=== PATIENT | male | born 1995 | race Caucasian/White ===

== ENCOUNTER 2022-04-15 15:54 | Emergency (ER) | payer OTHER, SELFPAY ==
[2022-04-15 16:07] VITALS: BP 134/76; PULSE 91; RESP 14; TEMP 36.4; O2SAT 99; BMI 27.8
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
[2022-04-15 17:17] LABS: Basophils # 0.1 10^3/uL (0.0-0.1); Basophils % 0.4 %; Eosinophils # 0.1 10^3/uL (0.0-0.8); Hematocrit 44.3 % (42.0-52.0); Hemoglobin 15.3 g/dL (11.7-16.6); Lymphocytes # 1.8 10^3/uL (0.8-4.8); Lymphocytes % 15.5 %; Mean Corpuscular HGB Conc 34.5 g/dL (30.0-36.0); Mean Corpuscular Hemoglobin 28.8 pg (28.0-34.0); Mean Corpuscular Volume 83.4 fl (80-94); Mean Platelet Volume 9.1 fL (7.4-10.4); Monocytes # 0.4 10^3/uL (0.2-0.9); Monocytes % 3.6 %; Neutrophils # 9.34 10^3/uL (1.8-7.7); Neutrophils % 78.9 %; Nucleated Red Blood Cells % 0 %; Platelet Count 242 10^3/cmm (130-400); Red Blood Count 5.31 10^6/uL (4.1-5.3); Red Cell Distribution Width 11.5 % (12.1-15.1); White Blood Count 11.8 10^3/uL (4.0-10.0)
[2022-04-15 18:32] LABS: Blood Urea Nitrogen 19 mg/dL (6-20); Calcium 9.6 mg/dL (8.5-10.5); Carbon Dioxide 20 mmol/L (22-29); Chloride 103 mmol/L (98-107); Creatinine Clr Calc Pharmacy 144.5791; Glomerular Filtration Rate 102.8 mL/min (90-130); Glucose 78 mg/dL (65-115); Osmolality Calculated 293 mOsm/kg (285-295); Sodium 141 mmol/L (136-145)
[2022-04-15 18:35] LABS: Anion Gap 21.6 (5-19); Potassium 3.6 mmol/L (3.5-5.1)
[2022-04-15 19:51] VITALS: BP 148/69; PULSE 59; RESP 16; TEMP 37.4; O2SAT 99
== END 2022-04-15 19:52 | disposition home or self-care (01) ==
PROVIDERS: Physician Assistant; Emergency Provider Registered Nurse
DX: T67.5XXA Heat exhaustion, unspecified, initial encounter (principal); X30.XXXA Exposure to excessive natural heat, initial encounter
CPT/HCPCS: 80048; 85025; 99283

== ENCOUNTER → 2022-07-17 18:37 | Outpatient (BNVA) | payer BC, SELFPAY | PROVIDERS: Visit Provider Nurse Practitioner | DX: J02.9 Acute pharyngitis, unspecified (principal) | CPT/HCPCS: 87071; 87880 ==

== ENCOUNTER → 2025-02-13 16:06 | Outpatient (BNVA) | payer BC, SELFPAY | PROVIDERS: PCP Family Medicine; Visit Provider Family Medicine | DX: R19.7 Diarrhea, unspecified (principal) | CPT/HCPCS: 80053; 83690; 85025; 86140 ==